=== PATIENT | female | born 1955 | race Caucasian/White ===

== ENCOUNTER → 2017-09-13 | Outpatient (CLI) | payer OTHER ==
--- NOTE | 2017-09-13 17:13 | RAD ---
HISTORY: Post-laminectomy. Neck surgery. Neck and left shoulder pain. Study: AP and lateral cervical spine with flexion and extension Comparison: None Findings: The neutral lateral view demonstrates loss of normal cervical lordosis. One-2 mm of spondylolisthesi s of C4 on C5 is noted. Mild disc space narrowing is noted at C3/C4 and C4/C5 as well as C6/C7. Pat ient is status post fusion at C5/C6. Moderate anterior spurs are noted at several levels. The preve rtebral soft tissues are normal. The posterior elements are intact. Moderate facet arthropathy is n oted at multiple levels. Mild to moderate uncovertebral joint arthropathy is noted at several levels as well. Flexion and extension are both moderately to moderately severely limited with mild instabi lity suspected at C2/C3 . A focal oval lucency is present in the C4 vertebral body. This has a mode rately sclerotic border. It could be due to overlapping shadows. Further evaluation with MRI or com parison to prior films is recommended. IMPRESSION: 1. Cervical spondylosis as described above with postoperative change as noted. 2. Focal lucency in the C4 vertebral body, possibly due to degenerative change or overlapping shadow s. Comparison 2 prior films and/or MRI is recommended. 3. Loss normal cervical lordosis which may be seen in normal individuals, be positional or secondary to muscle spasm. 4. [id number] limitation of flexion extension with minimal instability suspected at C2/C3 Reported By:
--- NOTE | 2017-09-13 17:37 | RAD ---
HISTORY: Left shoulder pain. Study: Left shoulder: Three views Comparison: None Findings: Moderate acromioclavicular joint degeneration is noted. Minimal subacromial spurring is present. Mo derate degenerative changes noted at the rotator cuff insertion and [id number] in the glenohume ral joint. No acute bony or joint abnormalities are identified. IMPRESSION: 1. Degenerative change in the left shoulder as described above. 2. No acute bony abnormalities are identified. Reported By:
== END ==
LOC: RAD 16:07
PROVIDERS: ATTEND Physician Assistant Medical
DX: M96.1 Postlaminectomy syndrome, not elsewhere classified (principal); M25.512 Pain in left shoulder
CPT/HCPCS: 72050; 73030

== ENCOUNTER 2019-05-28 04:27 | Observation (INO) ==
[2019-05-28] MEDS ORDERED: NS 1000 ML 1,000 ML ONE (04:40)
[2019-05-28] MEDS ORDERED: NS 1000 ML 1,000 ML IV ONE (04:48)
[2019-05-28] MEDS ORDERED: ANTIVERT TAB 25 MG PO ONE (04:52)
--- NOTE | 2019-05-28 04:59 | DR.DIZZY ---
HPI Time seen Time Seen by Provider: 05/28/19 04:49 Complaint Chief Complaint Doctor Comments: A 64 y/o female presenting with dizziness. She states that she getting up to attend to her cat when she felt this way. There was no associated chest pain or palpitations. She denies tinnitus. She was diaphoretic. Nurses Notes Reviewed Nurses Notes Review: Yes Source History Provided: Patient Mode of Arrival Mode of Arrival: Ambulatory Timing Came on: Suddenly Onset of Symptoms Start Date: 05/28/19 Onset of Symptoms Start Time: 04:00 Duration How lon Duration: Hours Location of Weakness Weakness Location: None Context Onset: At rest Stroke Symptoms: None and Dizziness Associated signs and symptoms Associated Signs and Symptoms: Normal PMH PMH Past Medical History: Anxiety, Diabetes and Hypertension Past Surgical History: Yes Surgical History: Angioplasty/Stents and Ortho Surgery Family History Family Medical History: Cancer and [place] Social History Do you use any recreational Drugs:: No infectious screening Isolation: Standard ROS Review of Systems Constitutional: No Symptoms Reported Eyes: No Symptoms Reported ENTM: No Symptoms Reported Respiratoy: No Symptoms Reported Cardiovascular: No Symptoms Reported Gastrointestinal/Abdominal: No Symptoms Reported Genitourinary: No Symptoms Reported Neurological: Dizziness Musculoskeletal: No Symptoms Reported Integumentary: No Symptoms Reported Hematologic/Lymphatic: No Symptoms Reported Endocrine: No Symptoms Reported Psychiatric: No Symptoms Reported PE Vital Signs Vitals: Temperature 98.1 F Pulse Rate [Apical] 58 Pulse Rate 60 Respiratory Rate 17 Blood Pressure [Left Arm] 109/57 Blood Pressure 106/57 O2 Sat by Pulse Oximetry 96 General Limitations: No Limitations General Appearance: Alert, In No Apparent Distress and Obese Head Head Exam: Normal Inspection, Atraumatic and Normocephalic Eyes Eye exam: Normal Appearance and EOMI ENT ENT Exam: Normal Exam, Normal Oropharynx, Mucous Membranes Moist and TM's Normal Bilaterally Neck Neck Exam: Normal Inspection, Full ROM and Trachea Midline Chest Chest Inspection: Normal Inspection and Symmetric Chest Wall Rise Respiratory Respiratory Exam: Normal Lung Sounds Bilat Cardiovascular Cardiovascular Exam: Regular Rate, Normal Rhythm, Bradycardia, +S1 and +S2 Abdominal Exam Abdominal Exam: Normal Inspection, Normal Bowel Sounds and Soft Rectal Rectal Exam: Deferred Extremeties Extremities Exam: Normal Inspection and Full ROM Back Back Exam: Normal Inspection and Full ROM Neurologic Neurological Exam: Alert and Oriented X3 Speech: Fluid Speech Psychiatric Psychiatric Exam: Normal Affect and Normal Mood Skin Skin Exam: Dry and Normal Color COURSE Reevaluation 1st: Improved 2nd: Improved Education/Counseling Education/Counseling: Patient, Education and Counseling Educated On: Treatment, Diagnosis, Prognosis and Needs for Follow Up ROR Labs Reviewed Laboratory Results Reviewed?: Yes Result Diagrams: 05/28/19 04:40 05/28/19 04:40 Laboratory: WBC 5.8 X10^3/uL (3.6-10.0) 05/28/19 04:40 RBC 3.92 X10^6/uL (3.5-5.4) 05/28/19 04:40 Hgb 12.4 g/dL (12.0-16.0) 05/28/19 04:40 Hct 36.4 % (36.0-47.0) 05/28/19 04:40 MCV 92.9 fL (80.0-100.0) 05/28/19 04:40 MCH 31.7 pg (27.0-34.0) 05/28/19 04:40 MCHC 34.1 g/dL (33.0-35.0) 05/28/19 04:40 RDW 14.0 % (11.6-16.5) 05/28/19 04:40 Plt Count 127 X10^3/uL (150.0-450.0) L 05/28/19 04:40 MPV 8.2 fL (7.4-11.0) 05/28/19 04:40 Neut % (Auto) 46.1 % (42.0-75.0) 05/28/19 04:40 Lymph % (Auto) 35.1 % (21.0-51.0) 05/28/19 04:40 [place] % (Auto) 13.9 % (0.0-13.0) H 05/28/19 04:40 Eos % (Auto) 3.5 % (0.9-2.9) H 05/28/19 04:40 Baso % (Auto) 1.4 % (0.2-1.0) H 05/28/19 04:40 Neut # (Auto) 2.7 x10^3/uL (2.2-4.8) 05/28/19 04:40 Lymph # (Auto) 2.0 X10^3/uL (1.3-2.9) 05/28/19 04:40 [place] # (Auto) 0.8 x10^3/uL (0.3-0.8) 05/28/19 04:40 Eos # (Auto) 0.2 x10^3/uL (0.0-0.2) 05/28/19 04:40 Baso # (Auto) 0.1 X10^3/uL (0.0-0.1) 05/28/19 04:40 Absolute Nucleated RBC 0.0 /100WBC 05/28/19 04:40 Sodium 135 mmol/L (136-145) L 05/28/19 04:40 Corrected Sodium 135 mmol/L (136-145) L 05/28/19 04:40 Potassium 4.9 mmol/L (3.5-5.1) 05/28/19 04:40 Chloride 101 mmol/L (98-107) 05/28/19 04:40 Carbon Dioxide 30.1 mmol/L (21-32) 05/28/19 04:40 BUN 50 mg/dL (7-18) H 05/28/19 04:40 Creatinine 2.79 mg/dL (0.55-1.02) H 05/28/19 04:40 Est GFR (MDRD) Af Amer 22 (>60) L 05/28/19 04:40 Est GFR (MDRD) Non-Af 18 (>60) L 05/28/19 04:40 Glucose 114 mg/dL (65-99) H 05/28/19 04:40 Calcium 8.3 mg/dL (8.5-10.1) L 05/28/19 04:40 Corrected Calcium 9.3 mg/dL (8.5-10.1) 05/28/19 04:40 Total Bilirubin 0.40 mg/dL (0.2-1.0) 05/28/19 04:40 AST 28 Units/L (15-37) 05/28/19 04:40 ALT 21 Units/L (12-78) 05/28/19 04:40 Alkaline Phosphatase 88 Units/L (46-116) 05/28/19 04:40 Total Protein 7.4 g/dL (6.4-8.2) 05/28/19 04:40 Albumin 2.8 g/dL (3.4-5.0) L 05/28/19 04:40 Globulin 4.6 g/dL (2.5-4.5) H 05/28/19 04:40 Albumin/Globulin Ratio 0.6 Ratio (1.1-2.1) L 05/28/19 04:40 Other Results Comments: Radiology reports: CXR: Chronic lung changes with no acute changes. CT BrAIN: No acute intracranial hemorrhage. moderated atrophy. EKG Rate: 59 [place]: Normal Rhythm: NSR and PACs Block: None Hypertrophy: None ST: Normal Opioid Opioid Risk Tool Total: 0 Total Score Risk Category: Low Risk Copyright: [facility] predicting aberrant behaviors Diagnosis Discharge Problem: Orthostatic hypotension, Thrombocytopenia, CKD (chronic kidney disease) stage 4, GFR 15-29 ml/min Type 2 diabetes mellitus Qualifiers: Diabetes mellitus superintendent marine oil terminal insulin use: with [place] use Diabetes mellitus complication status: with kidney complications Diabetes mellitus complication detail: with chronic kidney disease Chronic kidney disease stage: stage 4 (severe) Qualified Code(s): E11.22 - Type 2 diabetes mellitus with diabetic c hronic kidney disease Depression Qualifiers: Depression Type: unspecified Qualified Code(s): F32.9 - Major depressive disorder, single episode, unspecified
[2019-05-28] MEDS ORDERED: ANTIVERT TAB 25 MG ONE (05:00)
[2019-05-28 05:15] LABS: BASOPHILS # (AUTO) 0.1 X10^3/uL (0.0-0.1); BASOPHILS % (AUTO) 1.4 % (0.2-1.0); EOSINOPHILS # (AUTO) 0.2 x10^3/uL (0.0-0.2); EOSINOPHILS % (AUTO) 3.5 % (0.9-2.9); HEMATOCRIT 36.4 % (36.0-47.0); HEMOGLOBIN 12.4 g/dL (12.0-16.0); LYMPHOCYTES % (AUTO) 35.1 % (21.0-51.0); MEAN CORPUSCULAR HEMOGLOBIN 31.7 pg (27.0-34.0); MEAN CORPUSCULAR HGB CONC 34.1 g/dL (33.0-35.0); MEAN CORPUSCULAR VOLUME 92.9 fL (80.0-100.0); MEAN PLATELET VOLUME 8.2 fL (7.4-11.0); MONOCYTES # (AUTO) 0.8 x10^3/uL (0.3-0.8); MONOCYTES % (AUTO) 13.9 % (0.0-13.0); NEUTROPHILS # (AUTO) 2.7 x10^3/uL (2.2-4.8); NEUTROPHILS % (AUTO) 46.1 % (42.0-75.0); PLATELET COUNT 127 X10^3/uL (150.0-450.0); RED BLOOD COUNT 3.92 X10^6/uL (3.5-5.4); WHITE BLOOD COUNT 5.8 X10^3/uL (3.6-10.0)
[2019-05-28 05:22] LABS: ALBUMIN 2.8 g/dL (3.4-5.0); CALCIUM 8.3 mg/dL (8.5-10.1); CARBON DIOXIDE 30.1 mmol/L (21-32); COR CA(FOR HYPOALB) 9.3 mg/dL (8.5-10.1); CREATININE 2.79 mg/dL (0.55-1.02); TOTAL PROTEIN 7.4 g/dL (6.4-8.2)
--- NOTE | 2019-05-28 05:41 | CT ---
CT head without contrast Indication: Dizziness. Technique: Axial images from the skull base to the vertex without contrast. Coronal and sagittal reformats provided. Findings: Review of bone windows shows no osseous lesion. Paranasal sinuses and mastoid air cells are clear. There is no acute intracranial hemorrhage, mass or mass effect. No extra-axial fluid collection or abnormal area of hypoattenuation suggest infarction seen. Mild atrophy with ex vacuo ventricular and sulcal enlargement. Review of bone windows shows no osseous lesion. Paranasal sinuses and mastoid air cells are clear. Impression: 1. No acute intracranial hemorrhage. 2. Moderate atrophy. Reported By:
--- NOTE | 2019-05-28 05:53 | RAD ---
Chest AP portable Indication: Dizziness Comparison: 05/22/2018 Findings: There is no pneumothorax or effusion. There is no consolidation. Monitoring leads obscure minimal detail. Heart size upper limits of normal. Mild hyperinflation and chronic interstitial markings noted. Impression: Chronic lung changes without other acute chest process seen. Reported By:
[2019-05-28] MEDS ORDERED: HumuLIN R SC PRN (06:23)
[2019-05-28] MEDS: NS 1000 ML 1,000 ML IV SCH ×3 (06:49→23:14)
[2019-05-28 08:02] LABS: CKMB % 1.6 % (<4); CREATINE KINASE 116 Units/L (26-192); CREATINE KINASE MB 1.9 ng/mL (0-4.0); TROPONIN I < 0.02 ng/mL (0-1.5)
[2019-05-28] MEDS: ASPIRIN PO SCH (09:41)
[2019-05-28] MEDS: BUMEX TAB 1 MG PO SCH ×2 (09:41→21:45)
[2019-05-28] MEDS: PROTONIX TAB 40 MG PO SCH (09:42)
[2019-05-28] MEDS: LIPITOR TAB 20 MG PO SCH (09:42)
[2019-05-28] MEDS: WELLBUTRIN SR 150 MG (BID) PO SCH ×2 (09:42→21:45)
[2019-05-28 10:53] VITALS: BMI 41.3
[2019-05-28] MEDS ORDERED: AFLURIA II4 or FLUARIX II4 IM ONE (10:53)
[2019-05-28] MEDS ORDERED: PREVNAR 13 IM ONE (10:53)
--- NOTE | 2019-05-28 12:29 | DR.H&P ---
H&P History & Physical for Day of: H&P Date: 05/28/19 Chief Complaint Chief Complaint: dizziness Allergies Allergies Allergy/AdvReac Type Severity Reaction Status Date / Time meloxicam [From Mobic] Allergy Verified 05/22/18 07:46 morphine Allergy Verified 05/22/18 07:46 History of Present Illness History of Present Illness: Patient presents with dizziness early this morning after attending to her cat. She reports feeling lightheaded with diaphoresis. Denies chest pain, SOB, N/V/D or fever or chills. She has a PMH of CKD seen by nephrology who is also her PCP. She has a hx of CHF on bumex. Denies any recent changes in medications. She was hypotensive in the ED, SBP in 90s. She was also orthostatic. She lives alone and is from [place] and was visiting her sick brother who last week. Past Medical History Past Medical History: Anxiety, Diabetes and Hypertension Past Surgical History Surgical History: Cholecystectomy, Hysterectomy and Ortho Surgery Family History Family Medical History: Diabetes Mellitus, CA and Coronary Artery Disease Social History Does patient currently use any type of tobacco product: No Have you used tobacco products in the last 12 months: No Type of Tobacco Use: Cigarettes How many years tobacco product used: 20 Does any household member use tobacco: No Alcohol Use: None Drug Use: None Prescription drug monitoring program results: PDMP was not reviewed Medications Home Medications: meloxicam [From Mobic] Allergy (Verified 05/22/18 07:46) morphine Allergy (Verified 05/22/18 07:46) CONTINUE taking the following medications aspirin 325 mg PO DAILY 05/28/19 [History] atorvastatin 20 mg PO DAILY 05/28/19 [History] bumetanide 2 mg PO BID 05/28/19 [History] bupropion HCl 150 mg PO BID 05/28/19 [History] carvedilol 25 mg PO BID 05/28/19 [History] insulin glargine [Lantus Solostar U-100 Insulin] 30 unit SUBCUT BID 05/28/19 [History] insulin lispro [Humalog KwikPen Insulin] 3 unit SUBCUT TID 05/28/19 [History] losartan-hydrochlorothiazide 1 tab PO DAILY 05/28/19 [History] oxycodone 10 mg PO Q6HR PRN 05/28/19 [History] tizanidine 4 mg PO HS 05/28/19 [History] Labs Result Diagrams: 05/28/19 04:40 05/28/19 04:40 Labs: Laboratory WBC 5.8 X10^3/uL (3.6-10.0) 05/28/19 04:40 RBC 3.92 X10^6/uL (3.5-5.4) 05/28/19 04:40 Hgb 12.4 g/dL (12.0-16.0) 05/28/19 04:40 Hct 36.4 % (36.0-47.0) 05/28/19 04:40 MCV 92.9 fL (80.0-100.0) 05/28/19 04:40 MCH 31.7 pg (27.0-34.0) 05/28/19 04:40 MCHC 34.1 g/dL (33.0-35.0) 05/28/19 04:40 RDW 14.0 % (11.6-16.5) 05/28/19 04:40 Plt Count 127 X10^3/uL (150.0-450.0) L 05/28/19 04:40 MPV 8.2 fL (7.4-11.0) 05/28/19 04:40 Neut % (Auto) 46.1 % (42.0-75.0) 05/28/19 04:40 Lymph % (Auto) 35.1 % (21.0-51.0) 05/28/19 04:40 [place] % (Auto) 13.9 % (0.0-13.0) H 05/28/19 04:40 Eos % (Auto) 3.5 % (0.9-2.9) H 05/28/19 04:40 Baso % (Auto) 1.4 % (0.2-1.0) H 05/28/19 04:40 Neut # (Auto) 2.7 x10^3/uL (2.2-4.8) 05/28/19 04:40 Lymph # (Auto) 2.0 X10^3/uL (1.3-2.9) 05/28/19 04:40 [place] # (Auto) 0.8 x10^3/uL (0.3-0.8) 05/28/19 04:40 Eos # (Auto) 0.2 x10^3/uL (0.0-0.2) 05/28/19 04:40 Baso # (Auto) 0.1 X10^3/uL (0.0-0.1) 05/28/19 04:40 Absolute Nucleated RBC 0.0 /100WBC 05/28/19 04:40 Sodium 135 mmol/L (136-145) L 05/28/19 04:40 Corrected Sodium 135 mmol/L (136-145) L 05/28/19 04:40 Potassium 4.9 mmol/L (3.5-5.1) 05/28/19 04:40 Chloride 101 mmol/L (98-107) 05/28/19 04:40 Carbon Dioxide 30.1 mmol/L (21-32) 05/28/19 04:40 BUN 50 mg/dL (7-18) H 05/28/19 04:40 Creatinine 2.79 mg/dL (0.55-1.02) H 05/28/19 04:40 Est GFR (MDRD) Af Amer 22 (>60) L 05/28/19 04:40 Est GFR (MDRD) Non-Af 18 (>60) L 05/28/19 04:40 Glucose 114 mg/dL (65-99) H 05/28/19 04:40 POC Glucose (mg/dL) 141 mg/dL (65-99) H 05/28/19 11:26 Calcium 8.3 mg/dL (8.5-10.1) L 05/28/19 04:40 Corrected Calcium 9.3 mg/dL (8.5-10.1) 05/28/19 04:40 Magnesium 2.4 mg/dL (1.7-2.9) 05/28/19 04:40 Total Bilirubin 0.40 mg/dL (0.2-1.0) 05/28/19 04:40 AST 28 Units/L (15-37) 05/28/19 04:40 ALT 21 Units/L (12-78) 05/28/19 04:40 Alkaline Phosphatase 88 Units/L (46-116) 05/28/19 04:40 Creatine Kinase 116 Units/L (26-192) 05/28/19 04:40 CK-MB (CK-2) 1.9 ng/mL (0-4.0) 05/28/19 04:40 CK/CKMB % Calc 1.6 % (<4) 05/28/19 04:40 Troponin I < 0.02 ng/mL (0-1.5) 05/28/19 04:40 Total Protein 7.4 g/dL (6.4-8.2) 05/28/19 04:40 Albumin 2.8 g/dL (3.4-5.0) L 05/28/19 04:40 Globulin 4.6 g/dL (2.5-4.5) H 05/28/19 04:40 Albumin/Globulin Ratio 0.6 Ratio (1.1-2.1) L 05/28/19 04:40 Review of Systems Constitutional: Sweats and Weakness; denies Fever, Chills and Malaise Eyes: No Symptoms Reported ENT: No Symptoms Reported Respiratory: denies Cough, Shortness of Breath, SOB with Excertion, Pleuritic Pain and Wheezing Cardiovascular: Edema and Light Headedness; denies Chest Pain, Palpitations and Orthopnea Gastrointestinal: denies Nausea, Vomiting, Abdominal Pain and Diarrhea Genitourinary: No Symptoms Reported Musculoskeletal: No Symptoms Reported Skin: No Symptoms Reported Neurological: Weakness; denies Numbness, Change in Speech, Confusion and Seizures Physical Exam Vital Signs: Temperature 98.1 F Pulse Rate [Left Brachial] 65 Pulse Rate [Apical] 58 Pulse Rate 64 Respiratory Rate 18 Blood Pressure [Left Arm] 137/63 Blood Pressure 160/65 O2 Sat by Pulse Oximetry 98 Oriented: Normal Eyes: Normal Ear: Normal Nose: Normal Respiratory: Clear Throughout Cardiovascular: Normal Auscultation: Bowel Sounds: Normal Palpation: Normal Tenderness: Normal Skin: Normal Musculoskeletal: Normal and Foot (right toe amputation ) Mood Description: Calm Speech Pattern: Clear Assessment/Plan (1) Hypotension (arterial): Status: Acute Plan: - SBP in 90s on admission, improved with NS bolus, currently on NS. Hold anti-hypertensives (2) Orthostatic hypotension: Status: Acute Plan: - orthostatics positive, continue hydration with NS , repeat orthostatic in the AM. CT head negative due to presenting with dizziness. (3) Dehydration: Status: Acute (4) Acute on chronic renal failure: Status: Acute Plan: Cr 2.79, hx of CKD, no prev labs to compare. Will need to obtain records from PCP (5) Thrombocytopenia: Status: Acute Plan: stable, 127 (6) Type 2 diabetes mellitus: Qualifiers: Chronic kidney disease stage: stage 4 (severe) Diabetes mellitus complication detail: with chronic kidney disease Diabetes mellitus complication status: with kidney complications Diabetes mellitus senior care insulin use: with assistant terminal manager use Qualified Code(s): E11.22 - Type 2 diabetes mellitus with diabetic chronic kidney disease; N18.4 - Chronic kidney disease, stage 4 (severe); Z79.4 - [facility] (current) use of insulin Status: Acute (7) Depression: Qualifiers: Depression Type: unspecified Qualified Code(s): F32.9 - Major depressive disorder, single episode, unspecified Status: Acute (8) Anxiety: Status: Acute (9) CAD (coronary artery disease): Status: Acute (10) CHF (congestive heart failure): Status: Acute
[2019-05-28 13:58] LABS: CREATINE KINASE 127 Units/L (26-192); CREATINE KINASE MB 2.5 ng/mL (0-4.0); TROPONIN I < 0.02 ng/mL (0-1.5)
[2019-05-28] MEDS ORDERED: INSULIN LISPRO 3 UNIT SUBCUT SCH (14:00)
[2019-05-28] MEDS ORDERED: NORCO 10/325 TAB ONE (15:31)
[2019-05-28 19:33] LABS: CKMB % 2.1 % (<4); CREATINE KINASE 116 Units/L (26-192); CREATINE KINASE MB 2.4 ng/mL (0-4.0); TROPONIN I < 0.02 ng/mL (0-1.5)
[2019-05-28] MEDS: COREG TAB 25 MG PO SCH (21:45)
[2019-05-28] MEDS: NORCO 10/325 TAB PO PRN (21:45)
[2019-05-29] MEDS: NS 1000 ML 1,000 ML IV SCH ×5 (01:12→20:49)
[2019-05-29 05:36] LABS: BASOPHILS % (AUTO) 0.8 % (0.2-1.0); EOSINOPHILS # (AUTO) 0.2 x10^3/uL (0.0-0.2); EOSINOPHILS % (AUTO) 3.9 % (0.9-2.9); HEMATOCRIT 35.2 % (36.0-47.0); HEMOGLOBIN 11.9 g/dL (12.0-16.0); LYMPHOCYTES # (AUTO) 1.6 X10^3/uL (1.3-2.9); LYMPHOCYTES % (AUTO) 34.9 % (21.0-51.0); MEAN CORPUSCULAR HEMOGLOBIN 31.5 pg (27.0-34.0); MEAN CORPUSCULAR HGB CONC 33.9 g/dL (33.0-35.0); MEAN PLATELET VOLUME 8.4 fL (7.4-11.0); MONOCYTES # (AUTO) 0.5 x10^3/uL (0.3-0.8); MONOCYTES % (AUTO) 10.8 % (0.0-13.0); NEUTROPHILS # (AUTO) 2.2 x10^3/uL (2.2-4.8); NEUTROPHILS % (AUTO) 49.6 % (42.0-75.0); PLATELET COUNT 105 X10^3/uL (150.0-450.0); RED BLOOD COUNT 3.79 X10^6/uL (3.5-5.4); WHITE BLOOD COUNT 4.5 X10^3/uL (3.6-10.0)
[2019-05-29 05:43] LABS: BLOOD UREA NITROGEN 47 mg/dL (7-18); CALCIUM 7.8 mg/dL (8.5-10.1); CARBON DIOXIDE 26.8 mmol/L (21-32); CHLORIDE 105 mmol/L (98-107); CREATININE 2.36 mg/dL (0.55-1.02); SODIUM 138 mmol/L (136-145); eGFR NON BLACK RACES 22 (>60)
[2019-05-29] MEDS: NORCO 10/325 TAB PO PRN ×2 (06:17→15:20)
--- NOTE | 2019-05-29 08:44 | PCM.PROG ---
Progress Note Progress Note for Day of Date of Exam: 05/29/19 Subjective Subjective: Patient seen this AM, no acute events overnight. She reports dizziness has improved, orthostatic vitals normal this morning. She has been eating and drinking ok. Past Medical Family Social History Past Med/Fam/Surg Hx: No changes since H&P Allergies: Allergies meloxicam [From Mobic] Allergy (Verified 05/22/18 07:46) morphine Allergy (Verified 05/22/18 07:46) Review of Systems ROS: No change since H&P Vital Signs and I&O's Vital Signs: Temperature 97.8 F Pulse Rate [Left Brachial] 62 Pulse Rate [Apical] 58 Pulse Rate 64 Respiratory Rate 18 Blood Pressure [Left Arm] 145/64 Blood Pressure 160/65 O2 Sat by Pulse Oximetry 96 Intake and Output: Intake & Output 05/26/19 05/27/19 05/28/19 05/29/19 23:59 23:59 23:59 23:59 Intake Total 4460 / 4460 1350 / 1350 Balance 4460 / 4460 1350 / 1350 Physical Exam Oriented: Normal Eyes: Normal Ear: Normal Nose: Normal Cardiovascular: Normal Auscultation: Bowel Sounds: Normal Tenderness: Normal Skin: Normal Musculoskeletal: Normal and Foot (right toe amputation ) Mood Description: Calm Speech Pattern: Clear and Appropriate Laboratory and Diagnostics Result Diagrams: 05/29/19 04:04 05/29/19 04:04 Labs: Laboratory WBC 4.5 X10^3/uL (3.6-10.0) 05/29/19 04:04 RBC 3.79 X10^6/uL (3.5-5.4) 05/29/19 04:04 Hgb 11.9 g/dL (12.0-16.0) L 05/29/19 04:04 Hct 35.2 % (36.0-47.0) L 05/29/19 04:04 MCV 93.0 fL (80.0-100.0) 05/29/19 04:04 MCH 31.5 pg (27.0-34.0) 05/29/19 04:04 MCHC 33.9 g/dL (33.0-35.0) 05/29/19 04:04 RDW 14.0 % (11.6-16.5) 05/29/19 04:04 Plt Count 105 X10^3/uL (150.0-450.0) L 05/29/19 04:04 MPV 8.4 fL (7.4-11.0) 05/29/19 04:04 Neut % (Auto) 49.6 % (42.0-75.0) 05/29/19 04:04 Lymph % (Auto) 34.9 % (21.0-51.0) 05/29/19 04:04 [place] % (Auto) 10.8 % (0.0-13.0) 05/29/19 04:04 Eos % (Auto) 3.9 % (0.9-2.9) H 05/29/19 04:04 Baso % (Auto) 0.8 % (0.2-1.0) 05/29/19 04:04 Neut # (Auto) 2.2 x10^3/uL (2.2-4.8) 05/29/19 04:04 Lymph # (Auto) 1.6 X10^3/uL (1.3-2.9) 05/29/19 04:04 [place] # (Auto) 0.5 x10^3/uL (0.3-0.8) 05/29/19 04:04 Eos # (Auto) 0.2 x10^3/uL (0.0-0.2) 05/29/19 04:04 Baso # (Auto) 0.0 X10^3/uL (0.0-0.1) 05/29/19 04:04 Absolute Nucleated RBC 0.1 /100WBC 05/29/19 04:04 Sodium 138 mmol/L (136-145) 05/29/19 04:04 Corrected Sodium TNP 05/29/19 04:04 Potassium 4.6 mmol/L (3.5-5.1) 05/29/19 04:04 Chloride 105 mmol/L (98-107) 05/29/19 04:04 Carbon Dioxide 26.8 mmol/L (21-32) 05/29/19 04:04 BUN 47 mg/dL (7-18) H 05/29/19 04:04 Creatinine 2.36 mg/dL (0.55-1.02) H 05/29/19 04:04 Est GFR (MDRD) Af Amer 27 (>60) L 05/29/19 04:04 Est GFR (MDRD) Non-Af 22 (>60) L 05/29/19 04:04 Glucose 103 mg/dL (65-99) H 05/29/19 04:04 POC Glucose (mg/dL) 101 mg/dL (65-99) H 05/29/19 05:24 Calcium 7.8 mg/dL (8.5-10.1) L 05/29/19 04:04 Corrected Calcium 9.3 mg/dL (8.5-10.1) 05/28/19 04:40 Magnesium 2.4 mg/dL (1.7-2.9) 05/28/19 04:40 Total Bilirubin 0.40 mg/dL (0.2-1.0) 05/28/19 04:40 AST 28 Units/L (15-37) 05/28/19 04:40 ALT 21 Units/L (12-78) 05/28/19 04:40 Alkaline Phosphatase 88 Units/L (46-116) 05/28/19 04:40 Creatine Kinase 116 Units/L (26-192) 05/28/19 19:05 CK-MB (CK-2) 2.4 ng/mL (0-4.0) 05/28/19 19:05 CK/CKMB % Calc 2.1 % (<4) 05/28/19 19:05 Troponin I < 0.02 ng/mL (0-1.5) 05/28/19 19:05 Total Protein 7.4 g/dL (6.4-8.2) 05/28/19 04:40 Albumin 2.8 g/dL (3.4-5.0) L 05/28/19 04:40 Globulin 4.6 g/dL (2.5-4.5) H 05/28/19 04:40 Albumin/Globulin Ratio 0.6 Ratio (1.1-2.1) L 05/28/19 04:40 Plan (1) Hypotension (arterial): Status: Acute Plan: - SBP in 90s on admission, improved with NS bolus, currently stable. Continue bumex and coreg, losartan-hctz still on hold due to [facility] on CKD. (2) Orthostatic hypotension: Status: Acute Plan: CT head negative due to presenting with dizziness. Orthostatics initially positive but now negative, dizziness improved (3) Dehydration: Status: Acute Plan: on hydration (4) Acute on chronic renal failure: Status: Acute Plan: Cr 2.36, hx of CKD, trending down since admission, no prev labs to compare. Will need to obtain records from PCP (5) Thrombocytopenia: Status: Acute Plan: plt 105, continue to monitor (6) Type 2 diabetes mellitus: Status: Acute Qualifiers: Chronic kidney disease stage: stage 4 (severe) Diabetes mellitus complication detail: with chronic kidney disease Diabetes mellitus complication status: with kidney complications Diabetes mellitus manager terminal insulin use: with alf use Qualified Code(s): E11.22 - Type 2 diabetes mellitus with diabetic chronic kidney disease; N18.4 - Chronic kidney disease, stage 4 (severe); Z79.4 - terminal worker (current) use of insulin (7) Depression: Status: Acute Qualifiers: Depression Type: unspecified Qualified Code(s): F32.9 - Major depr essive disorder, single episode, unspecified (8) Anxiety: Status: Acute (9) CAD (coronary artery disease): Status: Acute (10) CHF (congestive heart failure): Status: Acute
[2019-05-29] MEDS ORDERED: PREVNAR 13 IM ONE (09:00)
[2019-05-29] MEDS ORDERED: AFLURIA II4 or FLUARIX II4 IM ONE (09:00)
[2019-05-29] MEDS: ASPIRIN PO SCH (09:40)
[2019-05-29] MEDS: COREG TAB 25 MG PO SCH ×2 (09:40→20:50)
[2019-05-29] MEDS: BUMEX TAB 1 MG PO SCH ×2 (09:40→20:50)
[2019-05-29] MEDS: LIPITOR TAB 20 MG PO SCH (09:40)
[2019-05-29] MEDS: PROTONIX TAB 40 MG PO SCH (09:42)
[2019-05-29] MEDS: WELLBUTRIN SR 150 MG (BID) PO SCH ×2 (09:42→20:50)
[2019-05-30 05:33] LABS: CALCIUM 7.7 mg/dL (8.5-10.1); CARBON DIOXIDE 25.5 mmol/L (21-32); CREATININE 1.99 mg/dL (0.55-1.02)
[2019-05-30] MEDS: NORCO 10/325 TAB PO PRN (05:49)
[2019-05-30] MEDS: NS 1000 ML 1,000 ML IV SCH ×2 (05:50→06:36)
--- NOTE | 2019-05-30 08:05 | PCM.PROG ---
Progress Note Progress Note for Day of Date of Exam: 05/30/19 Subjective Subjective: Patient seen this AM, doing well and wants to go home. Denies dizziness. Discharge today, continue to hold losartan-hctz and tizanidine until seen by PCP in one week. Past Medical Family Social History Past Med/Fam/Surg Hx: No changes since H&P Allergies: Allergies meloxicam [From Mobic] Allergy (Verified 05/22/18 07:46) morphine Allergy (Verified 05/22/18 07:46) Review of Systems ROS: No change since H&P Vital Signs and I&O's Vital Signs: Temperature 98.1 F Pulse Rate [Left Brachial] 61 Pulse Rate [Apical] 58 Pulse Rate 64 Respiratory Rate 18 Blood Pressure [Right Arm] 137/77 Blood Pressure [Left Radial 156/79 Artery] Blood Pressure [Left Arm] 145/64 Blood Pressure 160/65 O2 Sat by Pulse Oximetry 96 Intake and Output: Intake & Output 05/27/19 05/28/19 05/29/19 05/30/19 23:59 23:59 23:59 23:59 Intake Total 4460 / 4460 5010 / 5010 1056 / 1056 Balance 4460 / 4460 5010 / 5010 1056 / 1056 Physical Exam Oriented: Normal Eyes: Normal Ear: Normal Nose: Normal Cardiovascular: Normal Auscultation: Bowel Sounds: Normal Tenderness: Normal Skin: Normal Musculoskeletal: Normal and Foot (right toe amputation ) Mood Description: Calm Speech Pattern: Clear and Appropriate Laboratory and Diagnostics Result Diagrams: 05/29/19 04:04 05/30/19 04:05 Labs: Laboratory WBC 4.5 X10^3/uL (3.6-10.0) 05/29/19 04:04 RBC 3.79 X10^6/uL (3.5-5.4) 05/29/19 04:04 Hgb 11.9 g/dL (12.0-16.0) L 05/29/19 04:04 Hct 35.2 % (36.0-47.0) L 05/29/19 04:04 MCV 93.0 fL (80.0-100.0) 05/29/19 04:04 MCH 31.5 pg (27.0-34.0) 05/29/19 04:04 MCHC 33.9 g/dL (33.0-35.0) 05/29/19 04:04 RDW 14.0 % (11.6-16.5) 05/29/19 04:04 Plt Count 105 X10^3/uL (150.0-450.0) L 05/29/19 04:04 MPV 8.4 fL (7.4-11.0) 05/29/19 04:04 Neut % (Auto) 49.6 % (42.0-75.0) 05/29/19 04:04 Lymph % (Auto) 34.9 % (21.0-51.0) 05/29/19 04:04 [place] % (Auto) 10.8 % (0.0-13.0) 05/29/19 04:04 Eos % (Auto) 3.9 % (0.9-2.9) H 05/29/19 04:04 Baso % (Auto) 0.8 % (0.2-1.0) 05/29/19 04:04 Neut # (Auto) 2.2 x10^3/uL (2.2-4.8) 05/29/19 04:04 Lymph # (Auto) 1.6 X10^3/uL (1.3-2.9) 05/29/19 04:04 [place] # (Auto) 0.5 x10^3/uL (0.3-0.8) 05/29/19 04:04 Eos # (Auto) 0.2 x10^3/uL (0.0-0.2) 05/29/19 04:04 Baso # (Auto) 0.0 X10^3/uL (0.0-0.1) 05/29/19 04:04 Absolute Nucleated RBC 0.1 /100WBC 05/29/19 04:04 Sodium 139 mmol/L (136-145) 05/30/19 04:05 Corrected Sodium 140 mmol/L (136-145) 05/30/19 04:05 Potassium 4.8 mmol/L (3.5-5.1) 05/30/19 04:05 Chloride 107 mmol/L (98-107) 05/30/19 04:05 Carbon Dioxide 25.5 mmol/L (21-32) 05/30/19 04:05 BUN 38 mg/dL (7-18) H 05/30/19 04:05 Creatinine 1.99 mg/dL (0.55-1.02) H 05/30/19 04:05 Est GFR (MDRD) Af Amer 33 (>60) L 05/30/19 04:05 Est GFR (MDRD) Non-Af 27 (>60) L 05/30/19 04:05 Glucose 153 mg/dL (65-99) H 05/30/19 04:05 POC Glucose (mg/dL) 116 mg/dL (65-99) H 05/30/19 05:28 Calcium 7.7 mg/dL (8.5-10.1) L 05/30/19 04:05 Corrected Calcium 9.3 mg/dL (8.5-10.1) 05/28/19 04:40 Magnesium 2.4 mg/dL (1.7-2.9) 05/28/19 04:40 Total Bilirubin 0.40 mg/dL (0.2-1.0) 05/28/19 04:40 AST 28 Units/L (15-37) 05/28/19 04:40 ALT 21 Units/L (12-78) 05/28/19 04:40 Alkaline Phosphatase 88 Units/L (46-116) 05/28/19 04:40 Creatine Kinase 116 Units/L (26-192) 05/28/19 19:05 CK-MB (CK-2) 2.4 ng/mL (0-4.0) 05/28/19 19:05 CK/CKMB % Calc 2.1 % (<4) 05/28/19 19:05 Troponin I < 0.02 ng/mL (0-1.5) 05/28/19 19:05 Total Protein 7.4 g/dL (6.4-8.2) 05/28/19 04:40 Albumin 2.8 g/dL (3.4-5.0) L 05/28/19 04:40 Globulin 4.6 g/dL (2.5-4.5) H 05/28/19 04:40 Albumin/Globulin Ratio 0.6 Ratio (1.1-2.1) L 05/28/19 04:40 Plan (1) Hypotension (arterial): Status: Acute Plan: - SBP in 90s on admission, improved with NS bolus, currently stable. Continue bumex and coreg, holding losartan-hctz due to FOREST (2) Orthostatic hypotension: Status: Acute Plan: CT head negative due to presenting with dizziness. Orthostatics initially positive but now negative, dizziness resolved. (3) Dehydration: Status: Acute Plan: on hydration (4) Acute on chronic renal failure: Status: Acute Plan: Cr 1.99, hx of CKD, trending down since admission. Labs from nephrology clinic showed Cr 2.32. (5) Normocytic anemia: Status: Acute Plan: Hgb 11.9, likely dilutional due to IVF, CTM (6) Thrombocytopenia: Status: Acute Plan: plt 105, continue to monitor (7) Type 2 diabetes mellitus: Status: Acute Qualifiers: Chronic kidney disease stage: stage 4 (severe) Diabetes mellitus complication detail: with chronic kidney disease Diabetes mellitus complication status: with kidney complications Diabetes mellitus terminologist insulin use: with terminologist use Qualified Code(s): E11.22 - Type 2 diabetes mellitus with diabetic chronic kidney disease; N18.4 - Chronic kidney disease, stage 4 (severe); Z79.4 - vermin exterminator (current) use of insulin (8) Depression: Status: Acute Qualifiers: Depression Type: unspecified Qualified Code(s): F32.9 - Major depressive disorder, single episode, unspecified (9) Anxiety: Status: Acute (10) CAD (coronary artery disease): Status: Acute (11) CHF (congestive heart failure): Status: Acute (12) GERD (gastroesophageal reflux disease): Status: Acute Plan: protonix prn
[2019-05-30] MEDS: ASPIRIN PO SCH (08:43)
[2019-05-30] MEDS: LIPITOR TAB 20 MG PO SCH (08:44)
[2019-05-30] MEDS: PROTONIX TAB 40 MG PO SCH (08:44)
[2019-05-30] MEDS: COREG TAB 25 MG PO SCH (08:44)
[2019-05-30] MEDS: WELLBUTRIN SR 150 MG (BID) PO SCH (08:44)
[2019-05-30] MEDS: BUMEX TAB 1 MG PO SCH (08:44)
[2019-05-30 09:19] VITALS: BP 196/95
--- NOTE | 2019-05-31 14:32 | W.DIS.FURT ---
Summary of Discharge Discharge Summary of Date Date of Exam: 05/30/19 Admission Date Date of Admission: 05/28/19 Admission Diagnosis Hospital Course: Ms. Real is a 64y/o female admitted for dizziness and hypotension. She was found to have systolic BP in 90s in the ED and orthostatic. Her BP improved with NS. She was also noted to have acute kidney injury on CKD. Her creatinine and electrolytes were monitored daily and replaced as needed. Her Creatinine trended down and was around her baseline when compared to her PCP lab results. Her symptoms resolved and she was stable for discharge. Her losartan-HCTZ was held and she was asked to see her PCP within one week. Vital Signs: Vital Signs (72 hours) 05/28/19 15:44 05/28/19 16:00 05/28/19 16:44 Temperature 97.9 F Pulse Rate [Left Brachial] 68 Respiratory Rate 18 18 18 Blood Pressure [Left Arm] 158/72 Blood Pressure [Left Radial Artery] Blood Pressure [Right Arm] O2 Sat by Pulse Oximetry 95 05/28/19 20:00 05/28/19 21:45 05/28/19 22:45 Temperature 98.1 F Pulse Rate [Left Brachial] 66 Respiratory Rate 20 18 18 Blood Pressure [Left Arm] 158/76 Blood Pressure [Left Radial Artery] Blood Pressure [Right Arm] O2 Sat by Pulse Oximetry 96 05/29/19 00:00 05/29/19 04:00 05/29/19 06:17 Temperature 97.9 F 97.8 F Pulse Rate [Left Brachial] 64 62 Respiratory Rate 20 18 18 Blood Pressure [Left Arm] 142/69 141/64 Blood Pressure [Left Radial Artery] Blood Pressure [Right Arm] O2 Sat by Pulse Oximetry 97 96 05/29/19 07:17 05/29/19 07:29 05/29/19 07:31 Temperature Pulse Rate [Left Brachial] Respiratory Rate 20 Blood Pressure [Left Arm] 156/79 152/91 Blood Pressure [Left Radial Artery] Blood Pressure [Right Arm] O2 Sat by Pulse Oximetry 05/29/19 07:32 05/29/19 08:00 05/29/19 12:00 Temperature 97.7 F 97.5 F L Pulse Rate [Left Brachial] 62 64 Respiratory Rate 20 20 Blood Pressure [Left Arm] 145/64 145/64 144/63 Blood Pressure [Left Radial Artery] Blood Pressure [Right Arm] O2 Sat by Pulse Oximetry 98 96 05/29/19 14:29 05/29/19 15:20 05/29/19 16:00 Temperature 97.6 F Pulse Rate [Left Brachial] 62 64 Respiratory Rate 20 20 Blood Pressure [Left Arm] 145/64 Blood Pressure [Left Radial Artery] 156/79 Blood Pressure [Right Arm] 152/91 140/68 O2 Sat by Pulse Oximetry 97 05/29/19 16:15 05/29/19 19:56 05/30/19 00:00 Temperature 98 F 97.8 F Pulse Rate [Left Brachial] 64 64 Respiratory Rate 20 20 20 Blood Pressure [Left Arm] Blood Pressure [Left Radial Artery] Blood Pressure [Right Arm] 150/78 159/73 O2 Sat by Pulse Oximetry 97 94 L 05/30/19 04:00 05/30/19 04:52 05/30/19 04:54 Temperature 98.1 F Pulse Rate [Left Brachial] 61 Respiratory Rate 18 Blood Pressure [Left Arm] Blood Pressure [Left Radial Artery] Blood Pressure [Right Arm] 142/66 148/86 137/77 O2 Sat by Pulse Oximetry 96 05/30/19 05:49 05/30/19 06:49 05/30/19 08:00 Temperature 98.2 F Pulse Rate [Left Brachial] 67 Respiratory Rate 18 20 18 Blood Pressure [Left Arm] Blood Pressure [Left Radial Artery] Blood Pressure [Right Arm] 183/87 O2 Sat by Pulse Oximetry 98 05/30/19 09:18 Temperature Pulse Rate [Left Brachial] Respiratory Rate Blood Pressure [Left Arm] 196/95 Blood Pressure [Left Radial Artery] 153/69 Blood Pressure [Right Arm] 164/79 O2 Sat by Pulse Oximetry Labs: Laboratory Last Values WBC 4.5 X10^3/uL (3.6-10.0) 05/29/19 04:04 RBC 3.79 X10^6/uL (3.5-5.4) 05/29/19 04:04 Hgb 11.9 g/dL (12.0-16.0) L 05/29/19 04:04 Hct 35.2 % (36.0-47.0) L 05/29/19 04:04 MCV 93.0 fL (80.0-100.0) 05/29/19 04:04 MCH 31.5 pg (27.0-34.0) 05/29/19 04:04 MCHC 33.9 g/dL (33.0-35.0) 05/29/19 04:04 RDW 14.0 % (11.6-16.5) 05/29/19 04:04 Plt Count 105 X10^3/uL (150.0-450.0) L 05/29/19 04:04 MPV 8.4 fL (7.4-11.0) 05/29/19 04:04 Neut % (Auto) 49.6 % (42.0-75.0) 05/29/19 04:04 Lymph % (Auto) 34.9 % (21.0-51.0) 05/29/19 04:04 [place] % (Auto) 10.8 % (0.0-13.0) 05/29/19 04:04 Eos % (Auto) 3.9 % (0.9-2.9) H 05/29/19 04:04 Baso % (Auto) 0.8 % (0.2-1.0) 05/29/19 04:04 Neut # (Auto) 2.2 x10^3/uL (2.2-4.8) 05/29/19 04:04 Lymph # (Auto) 1.6 X10^3/uL (1.3-2.9) 05/29/19 04:04 [place] # (Auto) 0.5 x10^3/uL (0.3-0.8) 05/29/19 04:04 Eos # (Auto) 0.2 x10^3/uL (0.0-0.2) 05/29/19 04:04 Baso # (Auto) 0.0 X10^3/uL (0.0-0.1) 05/29/19 04:04 Absolute Nucleated RBC 0.1 /100WBC 05/29/19 04:04 Sodium 139 mmol/L (136-145) 05/30/19 04:05 Corrected Sodium 140 mmol/L (136-145) 05/30/19 04:05 Potassium 4.8 mmol/L (3.5-5.1) 05/30/19 04:05 Chloride 107 mmol/L (98-107) 05/30/19 04:05 Carbon Dioxide 25.5 mmol/L (21-32) 05/30/19 04:05 BUN 38 mg/dL (7-18) H 05/30/19 04:05 Creatinine 1.99 mg/dL (0.55-1.02) H 05/30/19 04:05 Est GFR (MDRD) Af Amer 33 (>60) L 05/30/19 04:05 Est GFR (MDRD) Non-Af 27 (>60) L 05/30/19 04:05 Glucose 153 mg/dL (65-99) H 05/30/19 04:05 POC Glucose (mg/dL) 116 mg/dL (65-99) H 05/30/19 05:28 Calcium 7.7 mg/dL (8.5-10.1) L 05/30/19 04:05 Corrected Calcium 9.3 mg/dL (8.5-10.1) 05/28/19 04:40 Magnesium 2.4 mg/dL (1.7-2.9) 05/28/19 04:40 Total Bilirubin 0.40 mg/dL (0.2-1.0) 05/28/19 04:40 AST 28 Units/L (15-37) 05/28/19 04:40 ALT 21 Units/L (12-78) 05/28/19 04:40 Alkaline Phosphatase 88 Units/L (46-116) 05/28/19 04:40 Creatine Kinase 116 Units/L (26-192) 05/28/19 19:05 CK-MB (CK-2) 2.4 ng/mL (0-4.0) 05/28/19 19:05 CK/CKMB % Calc 2.1 % (<4) 05/28/19 19:05 Troponin I < 0.02 ng/mL (0-1.5) 05/28/19 19:05 Total Protein 7.4 g/dL (6.4-8.2) 05/28/19 04:40 Albumin 2.8 g/dL (3.4-5.0) L 05/28/19 04:40 Globulin 4.6 g/dL (2.5-4.5) H 05/28/19 04:40 Albumin/Globulin Ratio 0.6 Ratio (1.1-2.1) L 05/28/19 04:40 Reason For Visit: ORTHOSTASIS; THROMBOCYTOPENIA; TYPE 2 DM; CKD- Discharge Date Discharge Date: 05/30/19 Discharge Diagnosis All Active Problems (Updated 05/30/19 @ 09:13 by Brenden Najera) GERD (gastroesophageal reflux disease) (Acute) Normocytic anemia (Acute) Acute on chronic renal failure (Acute) Dehydration (Acute) Hypotension (arterial) (Acute) CHF (congestive heart failure) (Acute) CAD (coronary artery disease) (Acute) Anxiety (Acute) Cervical strain, acute (Acute) Shoulder sprain (Acute) Orthostatic hypotension (Acute) Thrombocytopenia (Acute) Type 2 diabetes mellitus (Acute) CKD (chronic kidney disease) stage 4, GFR 15-29 ml/min (Acute) Depression (Acute) Plan of Treatment: Continue with present treatment and follow up plan. Pt is to keep follow up appointment as instructed and take medications as ordered. Discharge Medications Discharge Medications: meloxicam [From Mobic] Allergy (Verified 05/22/18 07:46) morphine Allergy (Verified 05/22/18 07:46) CONTINUE taking the following medications Lantus Solostar U-100 Insulin 30 unit SUBCUT BID 05/28/19 [History] aspirin 325 mg PO DAILY 05/28/19 [History] atorvastatin 20 mg PO DAILY 05/28/19 [History] bumetanide 2 mg PO BID 05/28/19 [History] bupropion HCl 150 mg PO BID 05/28/19 [History] carvedilol 25 mg PO BID 05/28/19 [History] insulin lispro [Humalog KwikPen Insulin] 3 unit SUBCUT TID 05/28/19 [History] oxycodone 10 mg PO Q6HR PRN 05/28/19 [History] New Prescriptions pantoprazole 40 mg PO DAILY 30 Days #30 tab 05/30/19 [Rx] Follow up and Referral Follow Up: 1 Week (Dr Najera) Discharge Disposition Assessment: Patient stable no acute distress noted at time of discharge. Discharge Disposition: Home
== END 2019-05-30 11:30 | disposition home or self-care (01) ==
LOC: ER 04:27 → MED/SURG 04:27
PROVIDERS: ADMIT Family Medicine; ATTEND Family Medicine
DX: I50.9 Heart failure, unspecified; R94.31 Abnormal electrocardiogram [ECG] [EKG]; D69.6 Thrombocytopenia, unspecified; K21.9 Gastro-esophageal reflux disease without esophagitis; N17.9 Acute kidney failure, unspecified; N18.4 Chronic kidney disease, stage 4 (severe); I25.10 Atherosclerotic heart disease of native coronary artery without angina pectoris; I95.1 Orthostatic hypotension; E86.0 Dehydration; R42 Dizziness and giddiness; F32.89 Other specified depressive episodes; E11.22 Type 2 diabetes mellitus with diabetic chronic kidney disease; Z79.4 Long term (current) use of insulin
CPT/HCPCS: 36415; 70450; 71010; 71045; 80048; 80053; 82550; 82553; 83735; 84484; 85025; 90674; 90686; 93005; 96365; 96367; 96372; 97162; 99284; A4222; S0106; 90670; G0378; J1815; J7030